=== PATIENT | male | born 1980 | race Caucasian/White ===

== ENCOUNTER 2017-02-09 10:57 | Inpatient (IN) | payer BC ==
[~2017-02-09] VITALS: Ht 172.7 cm; Wt 116.6 kg
[2017-02-09 12:12] LABS: BASOPHIL % 0.4 % (0-2); PLATELET COUNT 268 x10^3mcL (130-400)
[2017-02-09 12:18] LABS: RED CELL DISTRIBUTION WIDTH 14.6 % (11.5-14.5)
[2017-02-09 12:20] LABS: CALCIUM 8.6 mg/dL (8.5-10.1); CARBON DIOXIDE 28.6 mmol/L (21-32); CHLORIDE SERUM 109 mmol/L (98-107); CREATININE SERUM 1.1 mg/dL (0.7-1.3); GFR1 > 60 mL/min; GLUCOSE SERUM 127 mg/dL (74-106); SODIUM SERUM 145 mmol/L (136-145)
[2017-02-09 12:24] LABS: ALBUMIN 3.7 g/dL (3.4-5.0); ALKALINE PHOSPHATASE 74 U/L (46-116); ALT/SGPT 42 U/L (16-63); AMYLASE 35 U/L (25-115); AST/SGOT 21 U/L (15-37); BILIRUBIN TOTAL 0.3 mg/dL (0.20-1.00); LIPASE 83 IU/L (73-393)
[2017-02-09 13:00] LABS: microscopic required? NO
[2017-02-09 13:21] LABS: UA SPECIFIC GRAVITY <=1.005 (1.005-1.035); urine erythrocyte NEGATIVE (NEGATIVE)
[2017-02-09 17:16] LABS: AMPHETAMINE QUAL UR NONE DETECTED (NEG <=1000)
[2017-02-09 17:18] LABS: T3 TOTAL 1.07 ng/mL
[2017-02-09 17:20] LABS: CHOLESTEROL/HDL RATIO 2.2; PHOSPHOROUS 3.1 mg/dL (2.5-4.9)
[2017-02-09 17:32] LABS: FREE T4 0.85 ng/dL (0.76-1.46); FREE THYROXINE INDEX 1.9 ug/dL (1.4-4.5); T4(THYROXINE) 5.5 ug/dL (4.7-13.3)
[2017-02-09 21:15] VITALS: BP 121/65
[2017-02-09 21:37] VITALS: BP 121/65
[2017-02-10 06:08] VITALS: BP 129/62
[2017-02-10 06:30] LABS: PLATELET COUNT 280 x10^3mcL (130-400)
[2017-02-10 06:34] LABS: CALCIUM 8.8 mg/dL (8.5-10.1); CARBON DIOXIDE 26.8 mmol/L (21-32); CHLORIDE SERUM 108 mmol/L (98-107); CREATININE SERUM 1.1 mg/dL (0.7-1.3); GFR1 > 60 mL/min; GLUCOSE SERUM 131 mg/dL (74-106); POTASSIUM SERUM 4.8 mmol/L (3.5-5.1); SODIUM SERUM 144 mmol/L (136-145)
[2017-02-10 07:02] LABS: BASOPHIL % 0 % (0-2); RED CELL DISTRIBUTION WIDTH 15.1 % (11.5-14.5)
[2017-02-10 10:00] VITALS: BP 111/68
[2017-02-10 14:00] VITALS: BP 101/62
[2017-02-10 18:18] VITALS: BP 106/70
[2017-02-10 22:08] VITALS: BP 112/55
[2017-02-11 06:03] VITALS: BP 123/79
[2017-02-11 06:32] LABS: BASOPHIL % 0.4 % (0-2); PLATELET COUNT 252 x10^3mcL (130-400)
[2017-02-11 06:57] LABS: CALCIUM 8.5 mg/dL (8.5-10.1); CARBON DIOXIDE 30.7 mmol/L (21-32); CHLORIDE SERUM 109 mmol/L (98-107); CREATININE SERUM 1.1 mg/dL (0.7-1.3); GFR1 > 60 mL/min; GLUCOSE SERUM 87 mg/dL (74-106); MAGNESIUM 2.1 mg/dL (1.8-2.4); PHOSPHOROUS 2.1 mg/dL (2.5-4.9); SODIUM SERUM 143 mmol/L (136-145)
[2017-02-11 10:00] VITALS: BP 129/76
[2017-02-11] MEDS ORDERED: APAP/HYDROCODON1 T13 PO (12:03)
[2017-02-11 14:00] VITALS: BP 142/78
[2017-02-11 14:58] VITALS: BP 129/75
[2017-02-11] MEDS ORDERED: COL100 PO (15:23)
== END 2017-02-11 15:51 | disposition home or self-care (01) | DRG 342 ==
LOC: ED 10:57 → DU 14:48
PROVIDERS: Emergency Medicine; Surgery; ADMIT Family Medicine
PROC: 0DTJ4ZZ Resection of Appendix, Percutaneous Endoscopic Approach (ICD-10-PCS; principal; 2017-02-09 18:00)
DX: K35.80 Unspecified acute appendicitis (principal); J94.8 Other specified pleural conditions; B00.1 Herpesviral vesicular dermatitis; K76.0 Fatty (change of) liver, not elsewhere classified; R73.03 Prediabetes; E87.8 Other disorders of electrolyte and fluid balance, not elsewhere classified; F17.210 Nicotine dependence, cigarettes, uncomplicated; Z53.29 Procedure and treatment not carried out because of patient's decision for other reasons; D72.829 Elevated white blood cell count, unspecified; E66.9 Obesity, unspecified; E83.39 Other disorders of phosphorus metabolism; Z68.39 Body mass index [BMI] 39.0-39.9, adult; Z71.6 Tobacco abuse counseling
CPT/HCPCS: 82962; 83880; 84439; 94150; 97116-GP; 99406; J0295; J0330; J1170; J1644; J1885; J2175; J2250; J2270; J2405; J2704; J2710; J3010; J3490; J7030; J7120; Q0092; Q9967

== ENCOUNTER 2018-08-06 16:19 | Emergency (ER) | payer BC ==
[~2018-08-06] VITALS: Ht 172.7 cm; Wt 108.0 kg
[~2018-08-06 16:19] MED LIST: APAP/HYDROCODON1 T13 PO; COL100 PO
[2018-08-06 16:56] VITALS: Ht 172.7 cm; Wt 108.0 kg
[2018-08-06 19:57] VITALS: BP 121/63
== END 2018-08-06 19:57 | disposition home or self-care (01) ==
LOC: ED 16:19
DX: L05.01 Pilonidal cyst with abscess (principal)
CPT/HCPCS: J1885; J2001

== ENCOUNTER 2018-08-08 08:54 | Emergency (ER) | payer BC ==
[~2018-08-08] VITALS: Ht 172.7 cm; Wt 109.3 kg
[2018-08-08 09:06] VITALS: Ht 172.7 cm; Wt 109.3 kg
[2018-08-08 11:28] VITALS: BP 145/78
== END 2018-08-08 11:55 | disposition home or self-care (01) ==
LOC: ED 08:54
DX: L05.01 Pilonidal cyst with abscess (principal); F17.210 Nicotine dependence, cigarettes, uncomplicated; Z90.89 Acquired absence of other organs
CPT/HCPCS: 99406